=== PATIENT | female | born 1940 | race Hispanic/Latino ===

== ENCOUNTER 2016-09-01 13:11 | Emergency (ER) | payer MEDICARE | END 2016-09-01 13:12 | disposition left against medical advice (07) | LOC: ED 13:11 | DX: Z53.21 Procedure and treatment not carried out due to patient leaving prior to being seen by health care provider (principal) ==

== ENCOUNTER 2016-10-31 13:03 | Outpatient (CLI) | payer MEDICARE ==
[2016-10-31] MEDS ORDERED: XYLOCAINE 1% 20 mL ONE (13:25)
--- NOTE | 2016-10-31 15:19 | Short Stay Summary ---
Invasive Assessment - Date Date of service: 10/31/16 - History & Physical H&P: obtained from office Allergies/Adverse Reactions: Allergies No Known Allergies Allergy (Unverified 09/01/16 13:47) - Procedure Note Procedure: Left stereotactic biopsy with clip placement Findings: see Pathology Pathology: list (core biopsy) Specimen disposition: to lab Estimated blood loss: none Tolerated Procedure Well: Yes Complications: none Invasive Assessment DC Note - Disposition Disposition: DC- TO HOME OR SELFCARE - Instructions Activity: no restrictions Follow up with: AMANDA BROWER MD [Primary Care Provider] - 7 Days EDWINA SRIVASTAVA MD [Staff Physician] - 7 Days
--- NOTE | 2016-10-31 15:22 | Operative Report ---
Operative Report Operative Report: Date of procedure: 10/31/2016 Pre-operative diagnosis: Left Breast upper outer quadrant microcalcifications Post-operative diagnosis: Same Procedure name(s): Left stereotactic biopsy with clip placement Surgeon: Ana Corral MD Histology Technologist: None Anesthesia: Local EBL: Less than 10 mL Findings: See pathology report Indications: This is a 75-year-old woman noted to have a cluster of abnormal microcalcifications in the upper outer left breast requiring biopsy for diagnosis [place] : Lateral Location: [facility] Procedure: Patient was brought to the stereotactic suite and placed prone on the table. The breast was placed in compression and electromechanical technician and stereotactic images were taken. The microcalcifications of concern were visualized and targeted. The breast was then prepped with Betadine. At the target site one percent lidocaine was infiltrated. Deeper tissue was then infiltrated using an 18-gauge spinal needle. The 8-gauge mammotome device was introduced to the target side. Stereotactic images confirmed the placement. The biopsy gun was then fired and a repeat stereotactic imaging was done. We had good positioning at this point. Circumferential biopsy was then performed using the 8-gauge mammotome device. Specimen mammogram showed removal of the microcalcifications of concern. A mammo- lor clip was then placed. The probe was removed from the breast. Stereotactic images confirmed the placement of the clip and removal of the microcalcifications of concern. Hemostasis was ascertained by compression. The skin jocelyne was then reapproximated using Steri-Strips and a Tegaderm dressing was applied. Patient tolerated the procedure without any complications.
--- NOTE | 2016-11-03 11:15 | Mammography Report ---
Stereotactic biopsy, specimen mammography, 2 view mammogram. This examination was technically performed by Dr. Corral. Calcifications were targeted in the upper outer left breast. Mammographic imaging of the samples demonstrates that at least 3 of the samples contained the targeted calcifications. A clip was left in place. A followup mammogram demonstrates a small hematoma surrounding the clip. No other complication or significant new findings.
== END 2016-10-31 13:04 | disposition home or self-care (01) ==
LOC: MAMMO 13:03
PROVIDERS: ATTEND Surgery
DX: R92.0 Mammographic microcalcification found on diagnostic imaging of breast (principal); N64.89 Other specified disorders of breast
CPT/HCPCS: 19081; 88305; G0206

== ENCOUNTER 2016-11-27 09:38 | Day surgery (SDC) | payer MEDICARE ==
[~2016-11-27 09:38] MED LIST: ANCEF/STERILE WATER 2 GM/20 ML IV NR
--- NOTE | 2016-11-27 10:48 | Anesthesia Consultation ---
Anesthesia Consult and Med Hx Date of service: 11/27/16 - Airway Anesthetic Teeth Evaluation: Poor ROM Head & Neck: Adequate Mental/Hyoid Distance: Adequate Mallampati Class: Class II Intubation Access Assessment: Probably Good - Pulmonary Exam CTA: Yes - Cardiac Exam Cardiac Exam: RRR - Pre-Operative Health Status ASA Pre-Surgery Classification: ASA3 Proposed Anesthetic Plan: General - Pulmonary Hx Smoking: Yes (STOPPED X 40 YRS- OCC SMOKER) Hx Sleep Apnea: No (DREAD PRE SCREEN LOW RISK) - Cardiovascular System Hx Hypertension: Yes (UKNOWN HOW LONG) - Central Nervous System Hx Psychiatric Problems: Yes (mild alzheimers) - Other Systems Hx Cancer: No
--- NOTE | 2016-11-27 10:49 | Anesthesia Day of Surgery ---
Anesthesia Day of Surgery - Day of Surgery Patient Examined: Yes Patient H&P Reviewed: Yes Patient is NPO: Yes
[2016-11-27] MEDS ORDERED: PEPCID PO NR (11:00)
[2016-11-27] MEDS ORDERED: NACL 0.9% 1000 ML 1,000 ML IV SCH (11:00)
[2016-11-27] MEDS ORDERED: XYLOCAINE 1% 20 mL ONE ×2 (11:17→13:24)
--- NOTE | 2016-11-27 13:03 | Procedure Note ---
Date of procedure: 11/27/16 Pre-op diagnosis: lt. breast lesion Post-op diagnosis: same Procedure: needle loc Findings: n/a Anesthesia: local Surgeon: KAMILAH COLÓN Estimated blood loss: none Pathology: none Condition: stable (surgery)
--- NOTE | 2016-11-27 13:05 | Mammography Report ---
Left breast the localization: The patient presents with a biopsy marker in the lateral left breast. A lateral protrusion utilized using mammographic grid technique. The skin was cleansed. 1% lidocaine used for local anesthesia. A 3 cm Boss needle was introduced with its position confirmed by mammography. MRI was introduced followed by removal of the needle and additional localization confirmation. No complication.
[2016-11-27] MEDS ORDERED: MARCAINE 0.25% INFILTRATI ONE ×3 (13:24→14:08)
[2016-11-27] MEDS ORDERED: SUBLIMAZE ONE (13:37)
[2016-11-27] MEDS ORDERED: DIPRIVAN 10 MG/ML IV ONE ×2 (13:37→14:55)
[2016-11-27] MEDS ORDERED: XYLOCAINE MPF 2% ONE (13:40)
[2016-11-27] MEDS ORDERED: NEO SYNEPHRINE/NS Syringe(OR USE) IV ONE (14:00)
[2016-11-27] MEDS ORDERED: XYLOCAINE 1% 20 mL INFILTRATI ONE ×2 (14:08)
[2016-11-27] MEDS ORDERED: NACL 0.9% IR ONE (14:08)
[2016-11-27] MEDS ORDERED: VERSED ONE (14:20)
[2016-11-27] MEDS ORDERED: ZOFRAN ONE (14:50)
--- NOTE | 2016-11-27 15:26 | Mammography Report ---
Operative left specimen mammogram: A single specimen is submitted it includes the localizing wire. The targeted clip is only questionably identified within the specimen. This has been discussed with Dr. Corral.
--- NOTE | 2016-11-27 15:47 | Operative Report ---
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 The guidewire was located at 1:00 zone B. After adequate IV anesthesia was obtained, the left breast was prepped and draped in the usual fashion. A transverse incision was made at the area of the guidewire and dissection was carried down along the path of the guidewire. The hematoma at the biopsy cavity was entered and old blood was evacuated.The tip and surrounding tissue were removed. The specimen was marked with sutures for orientation. Specimen mammogram showed removal of the area of concern. The wound was irrigated and hemostasis ascertained. Small hemoclips were placed in the 4 quadrant of the cavity to lor the cavity. The subcutaneous pocket then was closed using 3-0 Vicryl in a running fashion. The skin was closed with 4 Monocryl in a running subcuticular fashion. Skin glue was then applied. Patient tolerated procedure without any immediate complications. All counts reported as correct. Patient is taken to the PACU in stable condition
--- NOTE | 2016-11-27 15:49 | Discharge Summary ---
Short Stay Discharge Plan Activity: no restrictions Diet: regular Wound: open to air, other (May shower in 2 days ) Follow up with: AMANDA BROWER MD [Primary Care Provider] - 7 Days EDWINA SRIVASTAVA MD [Staff Physician] - 7 Days Prescriptions: HYDROcodone/APAP 5-325 [Bitely 5/325] 1 each PO Q4HR PRN #30 tablet PRN Reason: Pain
[2016-11-27 16:10] VITALS: BP 169/70
== END 2016-11-27 16:30 | disposition home or self-care (01) ==
LOC: OR 09:38
PROVIDERS: ATTEND Surgery
DX: N60.22 Fibroadenosis of left breast (principal); N60.12 Diffuse cystic mastopathy of left breast; N60.92 Unspecified benign mammary dysplasia of left breast; I10 Essential (primary) hypertension; G30.9 Alzheimer's disease, unspecified; F02.80 Dementia in other diseases classified elsewhere, unspecified severity, without behavioral disturbance, psychotic disturbance, mood disturbance, and anxiety; F41.9 Anxiety disorder, unspecified; M19.90 Unspecified osteoarthritis, unspecified site; F32.9 Major depressive disorder, single episode, unspecified; E78.5 Hyperlipidemia, unspecified; Z88.5 Allergy status to narcotic agent; Z87.891 Personal history of nicotine dependence; Z98.890 Other specified postprocedural states; Z90.710 Acquired absence of both cervix and uterus; Z96.659 Presence of unspecified artificial knee joint; Z79.899 Other long term (current) drug therapy; Z82.49 Family history of ischemic heart disease and other diseases of the circulatory system
CPT/HCPCS: 19125; 19281; 76098; 88307; J0690; J2250; J2370; J2405; J2704; J3010; J7030